=== PATIENT | male | born 1995 | race African-American/Black ===

== ENCOUNTER 2024-04-19 23:25 | Emergency (ER) | payer MEDICAID ==
[~2024-04-19] VITALS: Ht 190.5 cm; Wt 118.0 kg
[2024-04-19 23:31] VITALS: O2SAT 96
[2024-04-19] MEDS: SODIUM CHLORIDE 0.9% 1,000 ML IV ONE (23:50)
[2024-04-19] MEDS: METOCLOPRAMIDE HCL 10MG/2ML VIAL IV ONE (23:50)
[2024-04-19] MEDS: MORPHINE SULFATE 2 MG/ML INJ (NOT FOR IM USE) IV ONE (23:50)
[2024-04-20 00:05] LABS: BASOPHILS % 0.3 % (0.0-2.0); EOSINOPHILS % 0.4 % (0.0-5.0); HEMATOCRIT. 47.6 % (42.0-52.0); HEMOGLOBIN. 15.8 g/dL (14.0-18.0); LYMPHOCYTES % 21.3 % (20.0-50.0); MEAN CORPUSCULAR HEMOGLOBIN 32.2 pg (28.0-32.0); MEAN CORPUSCULAR HGB CONC 33.2 g/dL (31.0-37.0); MEAN CORPUSCULAR VOLUME 97.1 fL (80.0-94.0); PLATELET 246 x1000/uL (130-400); RED CELL DISTRIBUTION WIDTH 13.5 % (11.6-14.6); WHITE BLOOD COUNT 11.7 x1000/uL (4.5-11.0)
[2024-04-20 00:09] LABS: CHLORIDE 107 mEq/L (98-107); POTASSIUM 3.9 mEq/L (3.5-5.1); SODIUM 140 mEq/L (136-145)
[2024-04-20 00:10] LABS: CALCIUM 10.3 mg/dL (8.7-10.4); CARBON DIOXIDE 24 mEq/L (21-32)
[2024-04-20 00:15] LABS: CREATININE 1.1 mg/dL (0.6-1.3); GLUCOSE 101 mg/dL (70-105); UREA NITROGEN BLOOD 7 mg/dL (9-23)
[2024-04-20 00:17] LABS: ALANINE AMINOTRANSFERASE 23 IU/L (10-49); ALBUMIN 4.9 g/dL (3.2-4.8); ASPARTATE AMINOTRANSFERASE 25 IU/L (<34); BILIRUBIN DIRECT 0.1 mg/dL (<=3.0)
[2024-04-20 00:18] LABS: BETA HYDROXYBUTYRATE 0.1 mMol/L (0.0-0.3); BILIRUBIN TOTAL 0.4 mg/dL (0.1-1.0); PROTEIN TOTAL 8.7 g/dL (6.0-8.3)
[2024-04-20 00:19] LABS: INR 0.9; PROTHROMBIN TIME 10.3 sec (9.6-11.0)
[2024-04-20] MEDS ORDERED: ONDA4TAB50 MT (01:37)
[2024-04-20 01:57] VITALS: BP 134/77; PULSE 78; RESP 16; TEMP 36.44736; O2SAT 99
== END 2024-04-20 01:58 | disposition home or self-care (01) ==
LOC: ER 23:39
DX: R10.84 Generalized abdominal pain (principal); I10 Essential (primary) hypertension; E86.0 Dehydration; R11.2 Nausea with vomiting, unspecified; F32.9 Major depressive disorder, single episode, unspecified
CPT/HCPCS: 80076; 80048; 82010; 82962; 83690; 85025; 85610; 36415; 96361; 96374; 96375; 99285; J2765; J2270; J7030; Z7610